=== PATIENT | female | born 1995 | race Caucasian/White ===

== ENCOUNTER 2018-10-23 15:27 | Emergency (ER) | payer SELFPAY ==
[~2018-10-23] VITALS: Ht 154.9 cm; Wt 70.1 kg
[~2018-10-23 15:27] MED LIST: IBUP-1542 PO; ONDA4TAB14 PO
[2018-10-23 15:36] VITALS: Ht 154.9 cm; Wt 70.1 kg
[2018-10-23] MEDS ORDERED: KETOROLAC 30 MG INJ IM STA (17:45)
[2018-10-23] MEDS ORDERED: ONDANSETRON (ODT) 4 MG TAB ODT STA (17:45)
[2018-10-23 18:10] VITALS: BP 134/78; PULSE 82; RESP 18
== END 2018-10-23 18:17 | disposition home or self-care (01) ==
LOC: FTE 15:27
DX: R51 Headache (principal)
CPT/HCPCS: 81025; 96372; 99284; J1885